=== PATIENT | female | born 2005 | race Two or more races ===

== ENCOUNTER → 2024-12-26 | Outpatient (CLI) | payer MEDICAID, SELFPAY ==
--- NOTE | 2024-12-26 | XR_ITS ---
Examination: Lumbar spine, 5 views Technique: Lumbar spine AP, lateral, coned lateral lower lumbar spine, bilateral obliques 5 views Exam date and time: December 26, 2024 1136 hours INDICATIONS: Lower back pain beginning 2 days ago. FINDINGS: Adequate alignment lumbar vertebral bodies Diffuse [id number] lumbar disc narrowing most prominent at L5-S1 No spondylolisthesis Intact pedicles IMPRESSION: Diffuse [id number] lumbar degenerative disc disease, most prominent at L5-S1
== END | disposition home or self-care (01) ==
PROVIDERS: PCP Physician Assistant; Referring Provider Physician Assistant; Visit Provider Physician Assistant
DX: M51.360 Other intervertebral disc degeneration, lumbar region with discogenic back pain only (principal); M51.370 Other intervertebral disc degeneration, lumbosacral region with discogenic back pain only
CPT/HCPCS: 72110

== ENCOUNTER 2025-04-27 10:00 | Outpatient (RCR) | payer MEDICAID, SELFPAY ==
--- NOTE | 2025-04-14 09:48 | PT.OIERPT ---
PT OP Initial Eval Patient Information Outpatient Physical Therapy Treatment Date: 04/14/25 Visit Reasons: low back pain Medical Diagnosis: M54.50 Treatment Dx #1: Back Pain Treatment Dx #2: Back Pain Start of Care: 04/14/25 Date of Onset: 2 months ago Smoking Status Smoking Status: Never smoker Initial Assessment Subjective: Pt is a 19 y/o female reports of back pain (710) with intermittent numbness down the legs. Xray showed mild to moderate L5-S1 segment. No MRI has been done thus far. Pt has limitation with sitting, standing, chores, self care, cooking, cleaning, and performing recreational activities. 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 Objective: L/S AROM: all motions are WFL with end range pain into flexion and extension Hip PROM: all motions are WNL Hip MMTs: grossly 3+/5 Palpation: TTP L4-L5 facets and hypomobily Muscle LengthL: Hs tightness Assessment: Pt demonstrate back pain with mobility deficits leading to difficulty with ADLs. Pt will attempt physical therapy if pain persist Pt will be refer back to provider for further consultation. 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
--- NOTE | 2025-04-21 11:35 | PT.ODAYNRPT ---
PT Outpatient Daily Note OP Daily Note Outpatient Physical Therapy Treatment Date: 04/21/25 Visit Reasons: low back pain Subjective: Pt's back is doing okay and continues to experience pain down the legs. Objective: Please see flow chart for list of ther ex performed Assessment: cues to pace with all exercises and focus on form today. Decrease LE pain post PT session Plan: Continue with PT Length of Time (minutes) of Treatment: 30 Minutes Procedure Charges Therapeutic Exercise 30 minutes: Yes
--- NOTE | 2025-04-25 10:45 | PT.ODAYNRPT ---
PT Outpatient Daily Note OP Daily Note Outpatient Physical Therapy Treatment Date: 04/25/25 Visit Reasons: low back pain Subjective: Pt reports LBP has been doing ok, no pain to report today. Objective: Please see flow sheet for ther ex list. Assessment: Added interventions completed with minimal pain. Plan: Continue with poC. Length of Time (minutes) of Treatment: 30 Minutes Procedure Charges Therapeutic Exercise 30 minutes: Yes
--- NOTE | 2025-04-27 10:36 | PT.ODAYNRPT ---
PT Outpatient Daily Note OP Daily Note Outpatient Physical Therapy Treatment Date: 04/27/25 Visit Reasons: low back pain Subjective: Pt's back is about the same. Pt mentioned the heat doesn't help much. Objective: Please see flow chart for list of ther ex performed Assessment: Added more extension biased exercises with minimal pain reported; No radicular pain reported with all exercises today Plan: Continue with PT Length of Time (minutes) of Treatment: 30 Minutes Procedure Charges Therapeutic Exercise 30 minutes: Yes
--- NOTE | 2025-05-26 08:51 | PTNOTE_ITS ---
PT OP Progress/Discharge Note Date of Service: 05/26/25 Progress Note/DC Note Progress Note/Discharge Note: DC Note Patient Information Visit Reasons: low back pain Service Discharge Date: 05/26/25 Status Assessment: Pt has been seen for 4 visits (eval + 3 visit). Pt las treated on 04/27/25 and no showed 05/01 and 05/05. At this time Pt will be d/c from care due to non- compliance per attendance policy. Pt did not meet set goals in therapy; thank you for your referrals
== END 2025-05-10 23:59 | disposition home or self-care (01) ==
LOC: CPTX 10:00
PROVIDERS: PCP Physician Assistant; Referring Provider Physician Assistant; Visit Provider Physician Assistant
DX: M54.50 Low back pain, unspecified (principal); R20.0 Anesthesia of skin
CPT/HCPCS: 97110; 97162